=== PATIENT | female | born 1985 | race American Indian/Alaskan Native ===

== ENCOUNTER 2022-06-25 18:54 | Emergency (ER) | payer MEDICAID, SELFPAY ==
[2022-06-25 19:35] VITALS: BP 123/77; PULSE 60
== END 2022-06-25 22:37 | disposition home or self-care (01) ==
LOC: JP.ED 18:54
DX: O20.0 Threatened abortion (principal); Z88.0 Allergy status to penicillin; Z3A.01 Less than 8 weeks gestation of pregnancy
CPT/HCPCS: 36415; 76817; 81001; 84702; 85014; 85018; 99284

== ENCOUNTER 2022-06-28 02:42 | Emergency (ER) | payer MEDICAID ==
[2022-06-28 02:54] VITALS: BP 109/59; PULSE 107
== END 2022-06-28 03:51 | disposition home or self-care (01) ==
LOC: JP.ED 02:42
DX: O03.9 Complete or unspecified spontaneous abortion without complication (principal); Z88.0 Allergy status to penicillin; Z88.8 Allergy status to other drugs, medicaments and biological substances; Z79.899 Other long term (current) drug therapy
CPT/HCPCS: 36415; 84702; 85027; 99284